=== PATIENT | female | born 1935 | race Caucasian/White ===

== ENCOUNTER 2017-06-20 19:35 | Emergency (ER) | payer OTHER, MEDICARE ==
[~2017-06-20] VITALS: Ht 165.1 cm; Wt 95.4 kg
[~2017-06-20 19:35] MED LIST: ACTONEL150 MG PO; ARTHROTEC 501 TABLET PO; ASCO-TABS-1001000 MG PO; ASPIR 8181 M1 PO; ASPIRIN EC325 MG PO; ATENOLOL25 MG PO; Antivert PO; Ascorbic Acid,Ester- PO; BACTRIM,SEPT1 TABLET PO; BONINE25 MG PO; CALTRATE 6001 TABLE2 PO; CENTRUM SILV1 TABLE1 PO; CLONAZEPAM0.5 MG PO; COUMADIN,JANTOVE1 MG PO; COUMADIN,JANTOVE5 MG PO; CYMBALTA60 MG PO; Cymbalta PO; DILAUDID4 MG PO; Duragesic TD; ELIQUIS5 MG PO; FENTANYL1 EAC1 TD; FENTANYL1 EAC2 TD; FEOSOL325 MG PO; FISH OIL CONC1 EACH PO; FOLIC ACID0.8 MG PO; Folic Acid PO; GLUCOSAMINE &1 EAC1 PO; Glucosamine/Chondroi PO; HYDROCODON-ACE1 EAC7 PO; IMODIUM MS REL1 EACH PO; IRON325 M1 PO; KETOCONAZOLE60 GM TP; KLONOPIN0.5 M1 PO; LEVOXYL75 MCG PO; LIDODERM 5% P1 PATCH TP; LIPITOR20 MG PO; LOPRESSOR25 MG PO; LORAZEPAM1 MG PO; Levothroid,Synthroid PO; MULTIVITAMIN1 EAC2 PO; MYCOLOG CREAM15 GM TP; OxyCODONE PO; OxyCONTIN PO; PERCOCET 5/31 TABLET PO; PERCOCET 7.51 TABLET PO; PLAQUENIL200 MG PO; PRILOSEC20 MG PO; PYRIDOXINE,VIT100 MG PO; Prilosec PO; RAMIPRIL5 MG PO; REQUIP0.5 MG PO; ROPINIROLE HCL0.5 MG PO; SANCTURA XR60 MG PO; SENOKOT S,PE1 TABLET PO; SKELAXIN800 MG PO; Skelaxin PO; TIZANIDINE HCL2 MG PO; TOFRANIL25 MG PO; TRUSOPT5 ML BOTH EYES; TYLENOL REGULA325 MG PO; Tenormin PO; Trusopt 2% Ophth Sol BOTH EYES; Tylenol Regular Stre PO; VITAMIN C1000 MG PO; VITAMIN D31000 UNIT PO; VOLTAREN 1% GE100 GM TP; Vitamin D, Drisdol PO; ZANAFLEX4 M1 PO; ZANAFLEX4 MG PO; ZESTRIL,PRINIVI10 M1 PO
[2017-06-20 20:14] LABS: HEMATOCRIT 39.3 % (36.0-46.0); MCHC 31.3 G/DL (30.0-36.0); MCV 89.5 FL (83-99); MEAN PLAT.VOLUME 9.1 uM^3 (9.5-12.4); PLATELET COUNT 180 K/uL (156-360); RBC DIS.WIDTH-CV 12.4 % (11.8-14.6); RED BLOOD COUNT 4.39 M/uL (3.80-5.20); WHITE BLOOD COUNT 5.7 K/uL (4.1-10.2)
[2017-06-20 20:23] LABS: CHLORIDE 105 mEq/L (99-109); POTASSIUM 4.6 mEq/L (3.7-5.4); SODIUM 141 mEq/L (136-147)
[2017-06-20 20:25] LABS: GLUCOSE 106 mg/dL (70-99)
[2017-06-20 20:26] LABS: ANION GAP 9 MEQ/L (2-14)
[2017-06-20 20:29] LABS: GFR ESTIMATE (CALCULATED) 56 mL/min/
[2017-06-20 20:30] LABS: UREA NITROGEN (BUN) 27 mg/dL (9-23)
[2017-06-20 20:37] LABS: INTER. NORMALIZED RATIO 1.3; PROTHROMBIN TIME 13.9 SEC (10.2-12.9)
[2017-06-20 23:02] VITALS: BP 144/79
== END 2017-06-20 23:06 | disposition home or self-care (01) ==
LOC: EME 19:35
PROVIDERS: Emergency Medicine
DX: N93.8 Other specified abnormal uterine and vaginal bleeding (principal); K44.9 Diaphragmatic hernia without obstruction or gangrene; K57.30 Diverticulosis of large intestine without perforation or abscess without bleeding; Z90.710 Acquired absence of both cervix and uterus; Z90.722 Acquired absence of ovaries, bilateral; Z85.42 Personal history of malignant neoplasm of other parts of uterus; I10 Essential (primary) hypertension
CPT/HCPCS: 71020; 74177; 80048; 85027; 85610; 93005; 99281; 99285; J7030

== ENCOUNTER 2018-06-07 17:10 | Observation (INO) | payer OTHER, MEDICARE ==
[~2018-06-07] VITALS: Ht 165.1 cm; Wt 94.0 kg
[~2018-06-07 17:10] MED LIST changes: -BONINE25 MG PO; +MECLIZINE HCL25 MG PO; +REQUIP2 MG PO; -ROPINIROLE HCL0.5 MG PO
[2018-06-07 17:38] LABS: HEMATOCRIT 38.3 % (36.0-46.0); HEMOGLOBIN 12.1 G/DL (11.9-15.5); MCH 28.4 PG (29.0-34.0); MCHC 31.6 G/DL (30.0-36.0); MCV 89.9 FL (83-99); PLATELET COUNT 176 K/uL (156-360); RBC DIS.WIDTH-CV 12.5 % (11.8-14.6); RBC DIS.WIDTH-SD 41.1 % (39-53); RED BLOOD COUNT 4.26 M/uL (3.80-5.20); WHITE BLOOD COUNT 6.3 K/uL (4.1-10.2)
[2018-06-07 17:51] LABS: CHLORIDE 105 mEq/L (99-109); POTASSIUM 4.7 mEq/L (3.7-5.4); SODIUM 141 mEq/L (136-147)
[2018-06-07 17:53] LABS: GLUCOSE 92 mg/dL (70-99)
[2018-06-07 17:57] LABS: CREATININE 0.9 mg/dL (0.6-1.3); GFR ESTIMATE (CALCULATED) > 59 mL/min/
[2018-06-07 17:58] LABS: UREA NITROGEN (BUN) 23 mg/dL (9-23)
[2018-06-07 18:00] LABS: TROP-I INTERPRETATION NEGATIVE; TROPONIN-I < 0.01 ng/mL (0.0-0.30)
[2018-06-07 21:33] LABS: LIPASE 11 U/L (1.0-51.0)
[2018-06-07] MEDS ORDERED: DURAGESIC100 MCG PO (21:50)
[2018-06-07] MEDS ORDERED: PERCOCET 7.51 TABLET PO (21:53)
[2018-06-07] MEDS ORDERED: LOPRESSOR25 MG PO (21:54)
[2018-06-07] MEDS ORDERED: ERGOCALCIF50000 UNIT PO (21:54)
[2018-06-07] MEDS ORDERED: CLONAZEPAM0.5 MG PO (21:55)
[2018-06-08 00:19] LABS: TROP-I INTERPRETATION NEGATIVE; TROPONIN-I 0.01 ng/mL (0.0-0.30)
[2018-06-08 00:33] VITALS: BP 112/59
[2018-06-08 03:51] VITALS: BP 114/59
[2018-06-08 05:05] LABS: BASOPHIL (%) 0.4 % (0-1); EOSINOPHIL COUNT 0.4 K/uL (0-0.3); HEMATOCRIT 35.4 % (36.0-46.0); HEMOGLOBIN 11.3 G/DL (11.9-15.5); IMMATURE GRANULOCYTE (%) 0.4 % (0.0-0.7); LYMPHOCYTE (%) 19.6 % (15-42); LYMPHOCYTE COUNT 1.4 K/uL (1.0-2.8); MCH 28.5 PG (29.0-34.0); MCHC 31.9 G/DL (30.0-36.0); MCV 89.4 FL (83-99); MONOCYTE (%) 16.8 % (3-12); MONOCYTE COUNT 1.2 K/uL (0-0.8); NEUTROPHIL (%) 57.8 % (45-76); NEUTROPHIL COUNT 4.2 K/uL (1.8-6.4); PLATELET COUNT 177 K/uL (156-360); RBC DIS.WIDTH-CV 12.5 % (11.8-14.6); RBC DIS.WIDTH-SD 41.6 % (39-53); RED BLOOD COUNT 3.96 M/uL (3.80-5.20); WHITE BLOOD COUNT 7.2 K/uL (4.1-10.2)
[2018-06-08 05:22] LABS: TROP-I INTERPRETATION NEGATIVE; TROPONIN-I < 0.01 ng/mL (0.0-0.30)
[2018-06-08 05:47] LABS: CHLORIDE 104 MEQ/L (99-109); CREATININE 1.1 MG/DL (0.6-1.3); GFR ESTIMATE (CALCULATED) 50 mL/min/; GLUCOSE 108 mg/dL (70-99); POTASSIUM 4.9 MEQ/L (3.7-5.4); SODIUM 141 MEQ/L (136-147); UREA NITROGEN (BUN) 26 mg/dL (9-23)
[2018-06-08 08:05] VITALS: BP 120/78
[2018-06-08 11:50] VITALS: BP 131/78
[2018-06-08] MEDS ORDERED: FUROSEMIDE40 MG PO (12:37)
[2018-06-08] MEDS ORDERED: K-DUR20 MEQ PO (12:38)
[2018-06-08 15:45] VITALS: BP 167/86
[2018-06-08 20:10] VITALS: BP 121/63
== END 2018-06-08 22:33 | disposition home or self-care (01) ==
LOC: EME 17:10 → EDOF 22:46 → 4SOUTH 22:46
PROVIDERS: Internal Medicine
DX: R07.9 Chest pain, unspecified (principal); I11.0 Hypertensive heart disease with heart failure; I50.33 Acute on chronic diastolic (congestive) heart failure; E78.5 Hyperlipidemia, unspecified; I48.0 Paroxysmal atrial fibrillation; E03.9 Hypothyroidism, unspecified; M06.9 Rheumatoid arthritis, unspecified; I05.0 Rheumatic mitral stenosis; R73.01 Impaired fasting glucose; K44.9 Diaphragmatic hernia without obstruction or gangrene; K21.9 Gastro-esophageal reflux disease without esophagitis; E66.9 Obesity, unspecified; Z68.34 Body mass index [BMI] 34.0-34.9, adult; F41.9 Anxiety disorder, unspecified; Z79.01 Long term (current) use of anticoagulants; Z79.891 Long term (current) use of opiate analgesic; Z85.42 Personal history of malignant neoplasm of other parts of uterus; Z90.710 Acquired absence of both cervix and uterus; Z96.612 Presence of left artificial shoulder joint; Z96.653 Presence of artificial knee joint, bilateral; Z96.643 Presence of artificial hip joint, bilateral; Z82.49 Family history of ischemic heart disease and other diseases of the circulatory system; Z82.3 Family history of stroke; Z80.1 Family history of malignant neoplasm of trachea, bronchus and lung; Z83.3 Family history of diabetes mellitus; Z88.6 Allergy status to analgesic agent; Z88.1 Allergy status to other antibiotic agents; Z88.8 Allergy status to other drugs, medicaments and biological substances; Z91.048 Other nonmedicinal substance allergy status
CPT/HCPCS: 71046; 80048; 83690; 83880; 84484; 85025; 85027; 93005; 99281; 99285; G0378